=== PATIENT | female | born 2000 | race Caucasian/White ===

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

== ENCOUNTER 2019-01-10 21:28 | Emergency (ER) | payer OTHER ==
[~2019-01-10] VITALS: Ht 160 cm; Wt 59.7 kg
[~2019-01-10 21:28] MED LIST: AMOX1TAB10 PO; HYDR15SO8 PO; IBUP800T48 PO
[2019-01-10 21:51] VITALS: Ht 160 cm; Wt 59.7 kg
--- NOTE | 2019-01-11 02:15 | ERD ---
ER Documentation Chief Complaint Chief Complaint left jaw pain, states turned head to the right around 7 pm, denies trauma HPI 18-year-old female presents due to complaint of jaw pain. States that she turned her head suddenly and she heard a pop in her jaw area. Since then she states she has not been able to open her jaw completely and there is pain when she moves it. Denies past medical history. Denies allergies. Denies medications. Denies surgeries. Denies alcohol, tobacco, drug use. Up to date on vaccines. ROS All systems reviewed and are negative except as per history of present illness. Medications Home Meds Active Scripts Hydrocodone Bit-Acetaminophen* (Lortab* Liq) 7.5 Mg-325 Mg/15 Ml Solution, 15 ML PO Q6H PRN for PAIN, #120 ML Prov:RUBINA VALENTINE DO 12/09/16 Discontinued Scripts Ibuprofen* (Motrin*) 800 Mg Tab, 800 MG PO Q6H PRN for PAIN AND OR ELEVATED TEMP, #30 TAB Prov:RUBINA VALENTINE DO 12/09/16 Amoxicillin/Potassium Clav (Amox-Clav 875-125 mg Tablet) 875-125 mg Tab, 1 TAB PO BID for 7 Days, #14 TAB Prov:RUBINA VALENTINE DO 12/09/16 Allergies Allergies: Coded Allergies: No Known Allergy (Unverified , 01/11/19) PMhx/Soc Medical and Surgical Hx: pt denies Medical Hx, pt denies Surgical Hx Hx Alcohol Use: No Hx Substance Use: No Hx Tobacco Use: No Smoking Status: Never smoker FmHx Family History: No diabetes, No coronary disease, No other Physical Exam Vitals Vital Signs Date Temp Pulse Resp B/P (MAP) Pulse Ox O2 O2 Flow FiO2 Time Delivery Rate 01/11/19 88 16 111/77 100 Room Air 05:47 (88) 01/11/19 84 16 130/77 100 Room Air 04:11 (94) 01/10/19 98.7 86 18 134/76 100 21:51 (95) Physical Exam Const: No acute distress Head: Atraumatic Eyes: Normal Conjunctiva ENT: Normal External Ears, Nose and Mouth. Unable to fully open jaw. Tenderness to palpation in the TMJ area. No edema, erythema ecchymosis, or bony deformity noted. Neck: Full range of motion. No meningismus. Resp: Clear to auscultation bilaterally Cardio: Regular rate and rhythm, no murmurs Abd: Soft, non tender, non distended. Normal bowel sounds Skin: No petechiae or rashes Back: No midline or flank tenderness Ext: No cyanosis, or edema Neur: Awake and alert Psych: Normal Mood and Affect Results 24 hrs Laboratory Tests Test 01/11/19 02:27 POC Beta HCG, Qualitative NEGATIVE Current Medications Medications Dose Sig/Marija Start Time Status Last (Trade) Ordered Route PRN Stop Time Admin Dose Reason Admin Ketorolac 30 mg ONCE ONCE 01/11/19 DC 01/11/19 Tromethamine IM 02:25 02:36 (Toradol) 01/11/19 02:26 Procedures/MDM DIAGNOSTIC IMAGING REPORT Patient: ANTHONY DESAI : 2000 Age: 18 Sex: F MR #: [id number] DOS: 01/11/19 0157 Ordering MD: HARJINDER COPELAND Location: [facility] Room/Bed: PROCEDURE: XR Temporomandibular Joint CLINICAL INDICATION: Pain. Possible dislocation TECHNIQUE: VIEWS: 5 including closed and open-mouth views IMAGES: 5 COMPARISON: None. FINDINGS: FRACTURES: None. VISUALIZED PARANASAL SINUSES: Grossly clear. TEMPOROMANDIBULAR JOINTS: Right-sided imaging demonstrates incomplete closure of the mouth and mild anterior translation of the mandibular condyle and minimal movement with open and closed mouth imaging. Left-sided imaging demonstrates appropriate anterior translation of the mandibular condyle of motion within close mouth imaging. IMPRESSION: 1. Incomplete closure of the mouth and mild anterior translation of the right mandibular condyle is noted with right-sided imaging. 2. There is more complete closure of the mouth and appropriate anterior translation of the left mandibular condyle with left-sided imaging. 3. Changes may be related to positioning or possibly displacement of the right- sided articular disc. 4. A follow-up MRI may be helpful for further evaluation if there is continued concern. RPTAT:HGST Dia Gallo Physician Date Time Electronically viewed and signed by Dia Gallo Physician on 01/11/2019 03:09 GT/ CC: HARJINDER COPELAND [phone] 18-year-old female presents due to complaint of jaw pain. States that she tur wilmer her head suddenly and she heard a pop in her jaw area. Since then she states she has not been able to open her jaw completely and there is pain when she moves it. Denies past medical history. Denies allergies. Denies medications. Denies surgeries. Denies alcohol, tobacco, drug use. Up to date on vaccines. X-ray was performed which showed possible jaw dislocation, and given patient's history and physical this is most likely explanation. I consulted with Dr Philippe and he said to contact ENT. I spoke with Dr Ramirez who said she would need oral surgeon. Patient transferred to care of Dr Philippe said he contacted oral surgeon who would be able to see her. Departure Diagnosis: Primary Impression: Dislocation, jaw Encounter type: initial encounter Qualified Codes: S03.00XA - Dislocation of jaw, unspecified side, initial encounter Condition: Stable BEANHARJINDER RIVERA Jan 11, 2019 02:15
[2019-01-11] MEDS ORDERED: KETOROLAC 30 MG INJ IM ONE (02:25)
--- NOTE | 2019-01-11 05:04 | QN ---
Documentation Comment Patient was transferred to ED 1 for this trauma issue. Upon reviewing the x-ray and the patient, patient seems to have a just complicated unilateral jaw dislocation. Given the complexity of this, I did discuss case with ENT sleeping car conductor and he recommended transfer to [facility]. Currently trying to place patient through [facility] and local hospitals. Will be signed out to oncoming 6 AM physician for final disposition HARJINDER SUTTON Jan 11, 2019 05:04
--- NOTE | 2019-01-11 05:41 | QN ---
Documentation Comment Spoke to Dr. Lida Woodward at [facility]. Advised patient to follow-up in his office today. Patient will be given office information. HARJINDER SUTTON. Jan 11, 2019 05:41
[2019-01-11 05:47] VITALS: BP 111/77; PULSE 88; RESP 16
== END 2019-01-11 06:00 | disposition home or self-care (01) ==
LOC: FTE 21:28 → E/R 01-11 06:00
DX: S03.02XA Dislocation of jaw, left side, initial encounter (principal); X58.XXXA Exposure to other specified factors, initial encounter; Y92.9 Unspecified place or not applicable
CPT/HCPCS: 70330; 81025; 96372; J1885; Z7502